=== PATIENT | male | born 1970 | race American Indian/Alaskan Native ===

== ENCOUNTER 2018-03-30 02:27 | Inpatient (IN) | payer MEDICAID, OTHER ==
--- NOTE | 2018-03-30 02:38 | ED PDOC ---
Psych Transfer Clearance - Clearance Statement Clearance Statement: Reviewed vital signs, lab results and transfer papers. Patient clinically stable for psychiatric admission.
[2018-03-30 02:41] VITALS: O2SAT 98
[2018-03-30] MEDS ORDERED: Magnesium Hydroxide Susp 30 ml UD PO PRN (02:50)
[2018-03-30] MEDS ORDERED: Alum-Mag Hydrox-Simethicone Susp (30 mL) PO PRN (02:50)
[2018-03-30] MEDS ORDERED: DiphenhydrAMINE 50 mg/ml Inj IM PRN (02:50)
--- NOTE | 2018-03-30 03:04 | PCM.BM ---
<Melquiades Crawford - Last Filed: 03/30/18 03:01> Treatment Plan Problems - Problems identified on initial assessmt Hopelessness/Helplessness Date Initiated: 03/30/18 Time Initiated: 03:02 Assessment reference: NA Status: Active Problem 2 Date Initiated: 03/30/18 Time Initiated: 03:03 Assessment reference: NA Status: Active Treatment assets and liabiliti Patient Assests: cooperative, educated, ADL independent, good past tx response Patient Liabilities: financial problems, substance abuse, medical problems - Milieu Protocol Maintain good personal hygiene: daily Remind patient to perform daily oral care , every other day Encourage regular showers Conduct patient checks and document Observation sheet: Q15 minutes Maintain personal safety: every shift Educate patient to report safety concerns to staff, every shift Monitor environment for contraband/sharps Medication safety: Monitor for expected outcome, potential side effects: every shift, Assess barriers to learning: every shift, Assess readiness for medication education: every shift <Hira Palomino - Last Filed: 04/01/18 12:28> - Diagnosis (1) Opiate dependence Status: Acute Interventions: motivational therapy 04/01/18 12:28
[2018-03-30 03:34] VITALS: RESP 18
[2018-03-30 08:07] LABS: T4 5.29 ug/dl (5.5-11.0)
--- NOTE | 2018-03-30 15:53 | PCM.PSYCH ---
Initial Psychiatric Evaluation - Initial Psychiatric Evaluation Type of Admission: Voluntary Legal Status: Capacity Chief Complaint (in patient's own words): I am depressed because my nephew Patient's Reaction to Hospitalization: pt requested help History of Present Illness and Precipitating Events: pt is 48ys old male with previous diagnosis of polysubstance dependence and bipolar disorder, has been following up with psychiatrist in [place], reportedly recently lost his nephew, became increasingly depressed, relapsed on cocaine , amphetamines, cannabis and opiates, started experiencing auditory hallucinations , and having suicidal ideation, came to ER seeking help on the unit pt reported depressed mood , feeling hopeless , passive suicidal ideation without active plan on the unit, denied homicidal ideation denied command hallucinations Current Medications: Active Medications Generic Name Dose Route Start Last Admin Trade Name Freq PRN Reason Stop Dose Admin Acetaminophen 650 mg 03/30/18 02:50 Tylenol 325mg Tab PO Q4 PRN pain level 4-7 Al Hydrox/Mg Hydrox/Simethicone 30 ml 03/30/18 02:50 Maalox Plus 30 Ml PO Q4 PRN Dyspepsia Clonidine HCl 0.1 mg 03/30/18 02:55 Catapres PO Q8 PRN heroin withdrawal Diphenhydramine HCl 50 mg 03/30/18 02:50 Benadryl IM Q6 PRN Extrapyramidal S/S Unable PO Diphenhydramine HCl 50 mg 03/30/18 02:50 03/30/18 15:28 Benadryl PO 50 mg Q6 PRN Administration Extrapyramidal Symptoms Diphenhydramine HCl 50 mg 03/30/18 02:55 Benadryl PO HS PRN Sleep Gabapentin 100 mg 03/30/18 17:00 Neurontin PO TID KELSEY Ibuprofen 400 mg 03/30/18 02:54 Motrin Tab PO Q6 PRN pain level 8-10 Loperamide HCl 2 mg 03/30/18 02:57 Imodium PO QID PRN Loose stools Loperamide HCl 2 mg 03/30/18 13:42 Imodium PO QID PRN Diarrhea Lorazepam 1 mg 03/30/18 02:50 Ativan IM Q6H PRN Anxiety/Agitation,Unable PO Magnesium Hydroxide 30 ml 03/30/18 02:50 Milk Of Magnesia PO HS PRN Constipation Mirtazapine 7.5 mg 03/30/18 22:00 Remeron PO [facility] Quetiapine Fumarate 100 mg 03/30/18 22:00 Seroquel PO [facility] Past Psychiatric History - Past Psychiatric History Explanation of prior treatment: multiple inpatient hospiatlizations History of ETOH/Drug Use: cocaine cannabis, opiates and amphetamines Pertinent Medical Hx (Current Medical&Sleep Prob, Allergies): Allergies Allergy/AdvReac Type Severity Reaction Status Date / Time haloperidol [From Haldol] Allergy ANAPHYLAXIS Verified 03/30/18 02:37 risperidone [From Risperdal] Allergy ANAPHYLAXIS Verified 03/30/18 02:37 thorazine Allergy ANAPHYLAXIS Uncoded 03/30/18 03:10 Abacavir/Dolutegravir/Lamivudi [Triumeq 600 mg-50 mg-300 mg] 1 tab PO DAILY 04/09 Mirtazapine [Remeron] 15 mg PO HS 03/30/18 QUEtiapine [SEROquel] 100 mg PO DAILY 03/30/18 Quetiapine Fumarate [Seroquel] 200 mg PO HS 03/30/18 Mental Status Examination - Personal Presentation Personal Presentation: Looks older than stated age - Affect Affect: Constricted, Depressed - Motor Activity Motor Activity: Psychomotor Agitation - Reliability in Providing Information Reliability in Providing Information: Poor, due to alteration in thoughts, Poor , due to altered mood - Speech Speech: Relevant - Mood Mood: Depressed, Anxious - Formal Thought Process Formal Thought Process: Hallucinations, Circumstantial - Obsessions/Compulsions Obsessions: No Compulsions: No - Cognitive Functions Orientation: Person, Place, Situation Sensorium: Alert Attention/Concentration: Easily distracted Judgement: Imparied, as evidence by: Poor judgement, Imparied, as evidence by: Lack of insight into illness - Risk Risk: Suicidal, Withdrawal, Diminished functioning - Strength & Assets Inventory Strength & Assets Inventory: Life experience - Limitations Additional comments: poor compliance DSM 5 DX - DSM 5 DSM 5 Diagnosis: 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
[2018-03-31 09:37] VITALS: BP 123/77; PULSE 66; TEMP 98.1
--- NOTE | 2018-03-31 13:37 | PCM.PYCHPN ---
Psychiatric Progress Note - Psychiatric Progress Note Patient seen today, length of contact: pt evaluated discussed with team chart reviewed Patient Chief Complaint: I get irritable without my medications Problems Identified/Issues Discussed: pt evaluated , reported feeling anxious and irritable at times, discussed with pt increasing seroquel , for mood stabilization motivational therapy provided in reference to substance use , discussed with pt its effect on current mental status, discussed referral to rehab, pt declined requested to continue with [facility] in [place] pt denied any current suicidal or homicidal ideation , denied perceptual disturbances Medical Problems: multiple inpatient hospiatlizations DSM 5 Symptoms Update: substance induced mood disorder bipolar disorder Medication Change: Yes (increase seroquel) Medical Record Reviewed: Yes Mental Status Examination - Cognitive Function Orientation: Person, Place, Situation Memory: Intact Attention: WNL Concentration: WNL Association: WNL Fund of Knowledge: WNL Decription of patient's judgement and insights: poor insight and judgment - Mood Mood: Depressed, Anxious - Affect Affect: Constricted, Depressed - Speech Speech: Appropriate - Formal Thought Process Formal Thought Process: Circumstantial Psychotic Thoughts and Behaviors: pt denied any current pperceptual disturbances, non elicited - Suicidal Ideation Suicidal Ideation: No - Homicidal Ideation Homicidal Ideation: No Goal/Treatment Plan - Goal/Treatment Plan Need for Continued Stay: Severe depression anxiety, Discharge may exacerbated symptoms, Severe functional impairment Progress Toward Problem(s) and Goals/Treatment Plan: increase seroquel 100mg qhs and 50mg bid for mood stabilization remeron 7.5mg qhs for depression discontinue clonidine vistaril prn for anxiety motivational group and supportive therapy
--- NOTE | 2018-04-01 13:13 | PCM.PYCHDC ---
Mental Status Examination - Mental Status Examination Orientation: Person, Place, Situation Memory: Intact Mood: Neutral Affect: Broad Speech: Appropriate Attention: WNL Concentration: WNL Association: WNL Fund of Knowledge: WNL Formal Thought Process: No Impairment Description of patient's judgement and insight: poor insight and judgment Psychotic Thoughts and Behaviors: pt denied any current pperceptual disturbances, non elicited Suicidal Ideation: No Current Homicidal Ideation?: No Discharge Summary - Discharge Note Reason for Hospitalization: pt is 48ys old male with previous diagnosis of polysubstance dependence and bipolar disorder, has been following up with psychiatrist in [place], reportedly recently lost his nephew, became increasingly depressed, relapsed on cocaine , amphetamines, cannabis and opiates, started experiencing auditory hallucinations , and having suicidal ideation, came to ER seeking help on the unit pt reported depressed mood , feeling hopeless , passive suicidal ideation without active plan on the unit, denied homicidal ideation denied command hallucinations Consultations:: List each consultation separately and include: 1. Reason for request. 2. Findings. 3. Follow-up Summary of Hospital Course include:: 1. Description of specific treatment plan utilized for patients during their course of treatmen. 2. Summarize the time- course for resolution of acute symptoms and/or regressed behaviors. 3. Describe issues identified and worked on during hospitalization. 4. Describe medication utilized. 5. Describe medical problems identified and treated. 6. Reassessment of suicide risk Summary of Hospital Course: pt on admission was started on clonidine protocol and monitored for symptoms and signs of opiate withdrawal pt was started on seroquel for mood stabilization Motivational , group and supportive therapy provided pt was educated on discharge about risk of relapse and possible overdose on discharge pt mental status was stable denied any current suicidal or homicidal ideation denied perceptual disturbances follow up arranged by social welfare clerk at [facility] - Diagnosis (1) Opiate dependence Status: Acute - Final Diagnosis (DSM 5) Condition upon Discharge: FAIR DSM 5: substance induced mood disorder opiate abuse cannabis abuse bipolar disorder Disposition: HOME/ ROUTINE Follow-up Treatment Plan: increase seroquel 100mg qhs and 50mg bid for mood stabilization remeron 7.5mg qhs for depression discontinue clonidine vistaril prn for anxiety motivational group and supportive therapy Prescriptions/Medication Reconciliation: Mirtazapine [Remeron] 7.5 mg PO HS 30 Days #30 tab QUEtiapine [Seroquel] 100 mg PO HS 30 Days #30 tab QUEtiapine [SEROquel] 50 mg PO BID 30 Days #60 tab - Smoking Cessation Smoking Cessation Medication prescribed: No - Antipsychotic Medications Pt discharged on 2 or more routine antipsychotic medications: No
== END 2018-04-01 12:28 | disposition home or self-care (01) | DRG 745 ==
LOC: H.ER 02:27 → H.PSYCH 02:37
PROVIDERS: ADMIT Psychiatry & Neurology Psychiatry; ATTEND Psychiatry & Neurology Psychiatry
PROC: HZ52ZZZ Individual Psychotherapy for Substance Abuse Treatment, Cognitive-Behavioral (ICD-10-PCS; principal; 2018-03-30)
PROC: GZHZZZZ Group Psychotherapy (ICD-10-PCS; 2018-03-30)
PROC: GZ58ZZZ Individual Psychotherapy, Cognitive-Behavioral (ICD-10-PCS; 2018-03-30)
DX: F11.24 Opioid dependence with opioid-induced mood disorder (principal); F14.959 Cocaine use, unspecified with cocaine-induced psychotic disorder, unspecified; F12.10 Cannabis abuse, uncomplicated; F31.9 Bipolar disorder, unspecified; F41.9 Anxiety disorder, unspecified

== ENCOUNTER 2018-11-29 02:26 | Emergency (ER) | payer MEDICAID ==
[2018-11-29 02:27] VITALS: BMI 24.0
[2018-11-29 02:39] VITALS: RESP 16
--- NOTE | 2018-11-29 03:22 | ED PDOC ---
HPI: Psych/Substance Abuse Time Seen by Provider: 11/29/18 02:40 Chief Complaint (Nursing): Psychiatric Evaluation Chief Complaint (Provider): Psychiatric Evaluation History Per: Patient History/Exam Limitations: no limitations Associated Symptoms: Suicidal Thoughts, Other (Auditory hallucinations) Additional Complaint(s): 48 years old male with history of schizoaffective disorder and HIV presents to ER for psychiatric evaluation. Patient reports hearing voices that tell him to jump off a building. Last viral load undetectable. He last snort heroin and cocaine 3 days ago. PMD: None provided Past Medical History Reviewed: Historical Data, Nursing Documentation, Vital Signs Vital Signs: Last Vital Signs Temp 97.6 F 11/29/18 02:37 Pulse 74 11/29/18 02:37 Resp 16 11/29/18 02:37 BP 113/77 11/29/18 02:37 Pulse Ox 97 11/29/18 02:37 - Medical History PMH: Bipolar Disorder, HIV, Schizophrenia Denies: Chronic Kidney Disease - Surgical History Surgical History: No Surg Hx - Family History Family History: States: Unknown Family Hx - Social History Current smoker - smoking cessation education provided: No Alcohol: None Drugs: Cocaine, Other (Heroin) - Immunization History Hx Tetanus Toxoid Vaccination: No Hx Influenza Vaccination: No Hx Pneumococcal Vaccination: No - Home Medications Home Medications: Ambulatory Orders Medication Instructions Recorded Abacavir/Dolutegravir/Lamivudi 1 tab PO DAILY 03/30/18 [Triumeq 600-50-300 mg Tablet] Mirtazapine [Remeron] 7.5 mg PO HS 30 Days #30 tab 04/01/18 QUEtiapine [SEROquel] 50 mg PO BID 30 Days #60 tab 04/01/18 QUEtiapine [Seroquel] 100 mg PO HS 30 Days #30 tab 04/01/18 Folic Acid 1 mg PO DAILY #14 tab 05/17/18 Mirtazapine [Remeron] 15 mg PO HS #14 tab 05/17/18 Multimineral/Multivitamin 1 tab PO DAILY #14 tab 05/17/18 [Therapeutic-M Tab] QUEtiapine [Seroquel] 100 mg PO AMHS #30 tab 05/17/18 cloNIDine [Catapres] 0.1 mg PO BID PRN #14 tab 05/17/18 - Allergies Allergies/Adverse Reactions: Allergies Allergy/AdvReac Type Severity Reaction Status Date / Time haloperidol [From Haldol] Allergy ANAPHYLAXIS Verified 06/02/18 08:14 risperidone [From Risperdal] Allergy ANAPHYLAXIS Verified 06/02/18 08:14 chlorpromazine AdvReac SHORTNESS Verified 06/02/18 08:14 [From Thorazine] OF BREATH thorazine Allergy ANAPHYLAXIS Uncoded 06/02/18 08:14 Review of Systems ROS Statement: Except As Marked, All Systems Reviewed And Found Negative Psych: Positive for: Suicidal ideation Physical Exam - Reviewed Nursing Documentation Reviewed: Yes Vital Signs Reviewed: Yes - Physical Exam Appears: Positive for: Well, No Acute Distress Head Exam: Positive for: ATRAUMATIC, NORMOCEPHALIC Skin: Positive for: Normal Color, Warm, Dry Eye Exam: Positive for: Normal appearance, EOMI, PERRL ENT: Positive for: Normal ENT Inspection Neck: Positive for: Normal, Painless ROM, Supple Cardiovascular/Chest: Positive for: Regular Rate, Rhythm. Negative for: Murmur Respiratory: Positive for: Normal Breath Sounds. Negative for: Respiratory Distress Gastrointestinal/Abdominal: Positive for: Normal Exam, Soft. Negative for: Tenderness Back: Positive for: Normal Inspection. Negative for: L CVA Tenderness, R CVA Tenderness Extremity: Positive for: Normal ROM. Negative for: Pedal Edema, Deformity Neurological/Psych: Positive for: Awake, Alert, Oriented (x3) - ECG O2 Sat by Pulse Oximetry: 97 (RA) Pulse Ox Interpretation: Normal Medical Decision Making Medical Decision Making: Time: 303 Initial impression: 48 y/o male with suicidal ideation and auditory hallucinations Initial plan: --Crisis evaluation --1:1 Observation 06 Patient cleared by crisis, stable for discharge. Diagnosis: schizoaffective disorder Scribe Attestation: Documented by Beata Prasad, acting as a scribe for Dontae Alexandre MD. Provider Scribe Attestation: All medical record entries made by the Scribe were at my direction and personally dictated by me. I have reviewed the chart and agree that the record accurately reflects my personal performance of the history, physical exam, medical decision making, and the department course for this patient. I have also personally directed, reviewed, and agree with the discharge instructions and disposition. Disposition - Clinical Impression Clinical Impression: Schizoaffective disorder - Patient ED Disposition Is Patient to be Admitted: No - Disposition Disposition: Routine/Home Disposition Time: 06:07 Condition: STABLE Forms: [employer] ([place])
[2018-11-29 06:02] VITALS: BP 126/81; PULSE 71; TEMP 98.2
[2018-11-29 06:08] VITALS: O2SAT 97
== END 2018-11-29 06:35 | disposition home or self-care (01) ==
LOC: H.ER 02:26
DX: F25.9 Schizoaffective disorder, unspecified (principal); Z00.8 Encounter for other general examination; Z86.59 Personal history of other mental and behavioral disorders; Z88.8 Allergy status to other drugs, medicaments and biological substances